=== PATIENT | female | born 1985 | race Hispanic/Latino ===

== ENCOUNTER → 2022-03-21 | Outpatient (CLI) | payer MEDICAID ==
[~2022-03-21] MED LIST: Folic Acid/Vitamin B Comp W-C PO; GABA100C PO; IOHEXOL 350 MG/ML 100ML INFUS..BTL IV ONE; PANT40TA PO
== END | disposition home or self-care (01) ==
LOC: RAH 11:11
PROVIDERS: ATTEND Student in an Organized Health Care Education/Training Program
DX: K35.33 Acute appendicitis with perforation, localized peritonitis, and gangrene, with abscess (principal); K35.32 Acute appendicitis with perforation, localized peritonitis, and gangrene, without abscess; N83.202 Unspecified ovarian cyst, left side
CPT/HCPCS: 74177; Q9967

== ENCOUNTER 2023-03-27 19:08 | Emergency (ER) | payer MEDICAID ==
[~2023-03-27] VITALS: Ht 154.9 cm; Wt 49.0 kg
[~2023-03-27 19:08] MED LIST changes: -IOHEXOL 350 MG/ML 100ML INFUS..BTL IV ONE
[2023-03-27 19:38] VITALS: BP 122/43; PULSE 127; RESP 20
[2023-03-27 20:17] LABS: RAPID GROUP A STREP negative (NEGATIVE)
[2023-03-27 20:24] LABS: INFLUENZA TYPE A Negative For Type A (NEGATIVE); INFLUENZA TYPE B Negative For Type B (NEGATIVE)
[2023-03-27 20:55] LABS: SARS-CoV-2, RNA, NAAT NEGATIVE SARS CoV-2 (NEGATIVE)
[2023-03-27] MEDS ORDERED: ONDA4TAB10 PO (22:43)
== END 2023-03-27 22:48 | disposition home or self-care (01) ==
LOC: EDH 19:08
DX: J00 Acute nasopharyngitis [common cold] (principal); Z90.49 Acquired absence of other specified parts of digestive tract; Z20.822 Contact with and (suspected) exposure to COVID-19
CPT/HCPCS: 99283; 87635; 87880; 87804 ×2; C9803

== ENCOUNTER 2023-08-11 19:15 | Emergency (ER) | payer MEDICAID ==
[~2023-08-11] VITALS: Ht 157.5 cm; Wt 49.0 kg
[~2023-08-11 19:15] MED LIST changes: +ONDA4TAB10 PO
[2023-08-11] MEDS: MAG/ALUM/SIMETH 30 ML UDCUP PO ONE (20:05)
[2023-08-11] MEDS: 0.9%NACL 1000ML 1,000 ML IV ONE (20:05)
[2023-08-11] MEDS: ONDANSETRON 4MG INJ IVP ONE (20:05)
[2023-08-11 20:37] LABS: BASOPHILS # (AUTO) 0.04 K/uL (0.00-0.20); BASOPHILS % (AUTO) 0.4 % (0.0-5.0); HEMATOCRIT 44.3 % (36-48); IMMATURE GRANULOCYTE ABSOLUTE 0.03 K/uL (0-1); LYMPHOCYTES # (AUTO) 1.4 K/uL (1.0-4.8); LYMPHOCYTES % (AUTO) 14.8 % (21.0-51.0); MEAN CORPUSCULAR HEMOGLOBIN 30.1 pg (27.0-33.0); MEAN CORPUSCULAR HGB CONC 35.4 g/dL (32.0-36.0); MEAN CORPUSCULAR VOLUME 84.9 fL (79-99); MONOCYTES # (AUTO) 0.6 K/uL (0.1-1.0); MONOCYTES % (AUTO) 5.9 % (3.0-13.0); NEUTROPHILS # (AUTO) 7.6 K/uL (1.8-7.7); NEUTROPHILS % (AUTO) 78.6 % (40.0-77.0); PLATELET COUNT (AUTO) 344 K/uL (130-400); RED BLOOD CELL COUNT(AUTO) 5.22 MIL/uL (4.00-5.50); RED CELL DISTRIBUTION WIDTH 11.7 % (11.0-15.5); WHITE BLOOD COUNT (AUTO) 9.6 K/uL (4.8-10.8)
[2023-08-11 20:40] LABS: CREATININE 0.7 mg/dL (0.5-1.0); POTASSIUM 3.5 mmol/L (3.5-5.1)
[2023-08-11 20:51] LABS: ALBUMIN 4.5 g/dL (3.5-5.0); BILIRUBIN,TOTAL 0.8 mg/dL (0.2-1.0); TOTAL PROTEIN, SERUM 8.5 g/dL (6.0-8.3)
[2023-08-11] MEDS: KETOROLAC 30MG VIAL (30MG/ML) IM STA (21:02)
[2023-08-11] MEDS ORDERED: ONDA4TAB10 PO (21:02)
[2023-08-11 21:08] VITALS: BP 130/85; PULSE 79; RESP 18; O2SAT 99
== END 2023-08-11 21:15 | disposition home or self-care (01) ==
LOC: EDH 19:15
DX: R11.2 Nausea with vomiting, unspecified (principal); R10.2 Pelvic and perineal pain
CPT/HCPCS: 99284; 96374; 82550; 80053; 84702; 83690; 85025; 36415; 96372; J7030; J2405; J1885